=== PATIENT | female | born 1940 | race Caucasian/White ===

== ENCOUNTER 2017-09-17 18:48 | Emergency (ER) | payer OTHER ==
[~2017-09-17] VITALS: Ht 162.6 cm; Wt 90.4 kg
[2017-09-17 21:00] VITALS: BP 163/102
== END 2017-09-17 21:35 | disposition home or self-care (01) ==
LOC: EME → EDBD 18:48 → EME 21:35
DX: S70.02XA Contusion of left hip, initial encounter (principal); S00.81XA Abrasion of other part of head, initial encounter; W05.0XXA Fall from non-moving wheelchair, initial encounter; J45.909 Unspecified asthma, uncomplicated; E11.9 Type 2 diabetes mellitus without complications; E78.5 Hyperlipidemia, unspecified; I10 Essential (primary) hypertension; F41.9 Anxiety disorder, unspecified; F17.200 Nicotine dependence, unspecified, uncomplicated
CPT/HCPCS: 73502; 99281; 99284

== ENCOUNTER 2018-01-27 15:08 | Emergency (ER) | payer OTHER ==
[~2018-01-27] VITALS: Ht 165.1 cm; Wt 89.0 kg
[2018-01-27 16:44] LABS: BASOPHIL (%) 0.3 % (0-1); EOSINOPHIL (%) 3.6 % (0-5); EOSINOPHIL COUNT 0.4 K/uL (0-0.3); HEMATOCRIT 40.9 % (36.0-46.0); HEMOGLOBIN 13.8 G/DL (11.9-15.5); IMMATURE GRANULOCYTE (%) 0.3 % (0.0-0.7); LYMPHOCYTE (%) 29.2 % (15-42); MCH 31.7 PG (29.0-34.0); MCHC 33.7 G/DL (30.0-36.0); MONOCYTE (%) 10.2 % (3-12); NEUTROPHIL (%) 56.4 % (45-76); NEUTROPHIL COUNT 5.7 K/uL (1.8-6.4); PLATELET COUNT 266 K/uL (156-360); RBC DIS.WIDTH-CV 13.7 % (11.8-14.6); RBC DIS.WIDTH-SD 47.3 % (39-53); RED BLOOD COUNT 4.35 M/uL (3.80-5.20); WHITE BLOOD COUNT 10.1 K/uL (4.1-10.2)
[2018-01-27 16:57] LABS: ALBUMIN 3.6 g/dL (3.2-4.8); CHLORIDE 98 mEq/L (99-109); POTASSIUM 4.3 mEq/L (3.7-5.4); SODIUM 136 mEq/L (136-147)
[2018-01-27 16:58] LABS: MAGNESIUM 1.2 mg/dL (1.3-2.7)
[2018-01-27 17:00] LABS: GLUCOSE 89 mg/dL (70-99); TOTAL PROTEIN 7.9 g/dL (6.4-8.3)
[2018-01-27 17:02] LABS: TOTAL BILIRUBIN 0.6 mg/dL (0.0-1.0)
[2018-01-27 17:03] LABS: ALKALINE PHOSPHATASE 133 IU/L (3-129); CREATININE 0.8 mg/dL (0.6-1.3); GFR ESTIMATE (CALCULATED) > 59 mL/min/
[2018-01-27 17:05] LABS: AST (GOT) 17 IU/L (2-34); UREA NITROGEN (BUN) 15 mg/dL (9-23)
[2018-01-27 17:06] LABS: ALT (GPT) 14 IU/L (3-49)
[2018-01-27 17:10] LABS: TROP-I INTERPRETATION NEGATIVE; TROPONIN-I 0.02 ng/mL (0.0-0.30)
[2018-01-27] MEDS ORDERED: VENTOLIN HFA18 GM IH (19:02)
[2018-01-27 19:26] VITALS: BP 143/61
== END 2018-01-27 19:27 | disposition home or self-care (01) ==
LOC: EME 15:08
PROVIDERS: Emergency Medicine
DX: J44.1 Chronic obstructive pulmonary disease with (acute) exacerbation (principal); F17.200 Nicotine dependence, unspecified, uncomplicated; I10 Essential (primary) hypertension; E78.5 Hyperlipidemia, unspecified; E11.9 Type 2 diabetes mellitus without complications; F41.9 Anxiety disorder, unspecified
CPT/HCPCS: 71045; 80053; 83735; 83880; 84484; 85025; 93005; 94640; 94640 76; 99281; 99285

== ENCOUNTER → 2018-03-24 | Outpatient (CLI) | payer MEDICARE, OTHER ==
[~2018-03-24] MED LIST: VENTOLIN HFA18 GM IH
== END | disposition home or self-care (01) ==
LOC: CDC 15:48
DX: Z01.810 Encounter for preprocedural cardiovascular examination (principal); I70.25 Atherosclerosis of native arteries of other extremities with ulceration; R94.31 Abnormal electrocardiogram [ECG] [EKG]
CPT/HCPCS: 93000